=== PATIENT | female | born 1995 | race Caucasian/White ===

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

== ENCOUNTER → 2017-03-15 | Outpatient (CLI) | payer OTHER ==
--- NOTE | 2017-03-15 10:41 | RADIOLOGY REPORT (SQ) ---
EXAM DESCRIPTION: MRI RT UPPER EXTREMITY COMBO COMPLETED DATE/TIME: 03/15/2017 9:47 am REASON FOR STUDY: FX OF UNSPEC PHALANX OF RIGHT THUMB (S62.501D) S62.501D FX UNSP PHALANX OF RIGHT THUMB, SUBS FOR FX W ROUTN COMPARISON: Intraoperative film 12/14/2016 Three views right hand 12/11/2016 TECHNIQUE: Multiplanar imaging to include T1-T2 weighted images. Right thumb imaged in extended pos ition. Additional post-contrast fat-sat axial coronal and sagittal images through the thumb were obt ained. Patient was injected with 10 mL of IV ProHance gadolinium. Patient less than 50 years old, renal fun ction testing not performed. FINDINGS: BONES: Patient had a transverse fracture of the right thumb proximal phalanx of on 7. Subsequent fluoro images demonstrate placement of a K-wire across the fracture. Three-view plain films of the thumb performed today, dictated separately, show nonunion of the fractu re, with a persistent lucency at the fracture line and sclerosis adjacent to the fracture line. On today's MRI, there is marrow edema throughout the right thumb proximal phalanx, fracture fragments . A 4-5 mm gap is present between the bony fracture fragments, filled with enhancing soft tissue lik radu granulation tissue. There is enhancement of the proximal and distal fracture fragments. These f indings are best shown on coronal images through the thumb, images 5-8 and sagittal postcontrast seri es 15, image 7. There is still slight dorsal angulation of the distal fracture fragment. The 1st MCP joint and thumb interphalangeal joint are intact. LIGAMENTS AND TENDONS: No obvious tear. Fahad mechanism appears intact. Collateral ligaments intac t. SOFT TISSUES: No masses. No significant joint effusions. Mild soft tissue enhancement immediately a djacent to the fracture OTHER: No other significant findings. 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 TECHNICAL DOCUMENTATION: JOB ID: [id number] [employer]- All Rights Reserved
--- NOTE | 2017-03-15 10:43 | RADIOLOGY REPORT (SQ) ---
EXAM DESCRIPTION: FINGER RIGHT COMPLETED DATE/TIME: 03/15/2017 9:41 am REASON FOR STUDY: NON HEALING THUMB FX, COMPARE WITH MRI S62.501D FX UNSP PHALANX OF RIGHT THUMB, S UBS FOR FX W ROUTN COMPARISON: Right thumb plain films 12/11/2016, intraoperative images 1117 NUMBER OF VIEWS: Three views. TECHNIQUE: AP, lateral, and oblique images acquired of the right thumb. LIMITATIONS: None. FINDINGS: MINERALIZATION: No osteopenia BONES: A nonunited fracture is present, right thumb proximal phalanx mid diaphysis. A persistent gap at the fracture line is seen with sclerosis along the distal fracture fragment. There is mild dorsa l angulation of the distal fracture fragment. Overlying soft tissue swelling is present. Next SOFT TISSUES: No soft tissue swelling. No foreign body. OTHER: Grossly normal alignment at the right thumb MCP and interphalangeal joints. 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
== END ==
LOC: RAD 07:57
PROVIDERS: ATTEND Orthopaedic Surgery
DX: S62.501D Fracture of unspecified phalanx of right thumb, subsequent encounter for fracture with routine healing (principal); X58.XXXD Exposure to other specified factors, subsequent encounter
CPT/HCPCS: 73220; 73140; A9576